=== PATIENT | male | born 1970 | race Caucasian/White ===

== ENCOUNTER → 2017-08-14 | Emergency (ER) | payer MEDICAID ==
[~2017-08-14] VITALS: Ht 177.8 cm; Wt 118.0 kg
[~2017-08-14] MED LIST: CETI-102 PO; MECL12.584 PO
[2017-08-14 17:31] VITALS: BP 152/85
== END | disposition home or self-care (01) ==
LOC: ER 16:29
DX: F41.9 Anxiety disorder, unspecified (principal); B34.9 Viral infection, unspecified; Z88.8 Allergy status to other drugs, medicaments and biological substances
CPT/HCPCS: 99284

== ENCOUNTER 2017-09-16 15:11 | Emergency (ER) | payer MEDICAID ==
[~2017-09-16] VITALS: Ht 177.8 cm; Wt 119.0 kg
[~2017-09-16 15:11] MED LIST changes: +AMOX-580 PO; +FLUT16SP2 BOTHNARES; +GUAI120015 PO
[2017-09-16] MEDS ORDERED: ondansetron 4mg rapidly disintigrating tab PO STA (16:33)
[2017-09-16] MEDS ORDERED: methylPREDNISolone sod succ 125mg/2ml vial IM STA (16:33)
[2017-09-16] MEDS ORDERED: PANT40SU2 PO (16:36)
[2017-09-16] MEDS ORDERED: ONDA4TAB9 PO (16:36)
[2017-09-16] MEDS ORDERED: MECL12.584 PO (16:36)
[2017-09-16] MEDS ORDERED: METH4TAB3 PO (16:36)
[2017-09-16 17:01] VITALS: BP 125/95
== END 2017-09-16 17:04 | disposition home or self-care (01) ==
LOC: ER 15:11
DX: K29.00 Acute gastritis without bleeding (principal); H81.10 Benign paroxysmal vertigo, unspecified ear; H83.09 Labyrinthitis, unspecified ear; Z87.891 Personal history of nicotine dependence; Z88.8 Allergy status to other drugs, medicaments and biological substances
CPT/HCPCS: 96372; 99284; J2930

== ENCOUNTER 2017-09-19 13:23 | Emergency (ER) | payer MEDICAID ==
[~2017-09-19] VITALS: Ht 177.8 cm; Wt 118.0 kg
[~2017-09-19 13:23] MED LIST changes: +METH4TAB3 PO; +ONDA4TAB9 PO; +PANT40SU2 PO
[2017-09-19] MEDS ORDERED: ondansetron/PF 4mg/2ml inj IV ONE (14:35)
[2017-09-19] MEDS ORDERED: pantoprazole 40 MG vial IV ONE (14:35)
[2017-09-19 15:36] VITALS: BP 160/96
[2017-09-19] MEDS ORDERED: PHE12.5T PO (16:16)
== END 2017-09-19 16:49 | disposition home or self-care (01) ==
LOC: ER 13:23
DX: R42 Dizziness and giddiness (principal); J32.4 Chronic pansinusitis; Z59.0 Homelessness; Z60.2 Problems related to living alone; Z79.899 Other long term (current) drug therapy
CPT/HCPCS: 70450; 70486; 93005; 96374; 96375; 99284; C9113; J2405

== ENCOUNTER 2018-01-22 10:07 | Emergency (ER) | payer MEDICAID ==
[~2018-01-22] VITALS: Ht 177.8 cm; Wt 122.0 kg
[~2018-01-22 10:07] MED LIST changes: -AMOX-580 PO; -ONDA4TAB9 PO; +PHE12.5T PO
[2018-01-22 10:13] VITALS: BP 140/103
== END 2018-01-22 11:19 | disposition home or self-care (01) ==
LOC: ER 10:07
DX: F41.0 Panic disorder [episodic paroxysmal anxiety] (principal); Z90.49 Acquired absence of other specified parts of digestive tract; Z60.2 Problems related to living alone; Z56.0 Unemployment, unspecified; Z88.8 Allergy status to other drugs, medicaments and biological substances; Z79.899 Other long term (current) drug therapy; Z59.0 Homelessness
CPT/HCPCS: 99283

== ENCOUNTER 2018-02-09 07:48 | Outpatient (CLI) | payer MEDICAID ==
[~2018-02-09 07:48] MED LIST changes: +FAMO20TA44 PO; +OMEP20CA10 PO; +ONDA4TAB9 SL; +SUCR1ORA2 PO
== END 2018-02-09 23:59 | disposition home or self-care (01) ==
LOC: LAB 07:48
PROVIDERS: ATTEND Nurse Practitioner Family
DX: K21.9 Gastro-esophageal reflux disease without esophagitis (principal); R10.13 Epigastric pain; Z87.891 Personal history of nicotine dependence
CPT/HCPCS: 74022

== ENCOUNTER 2019-03-19 02:57 | Emergency (ER) | payer MEDICAID ==
[~2019-03-19] VITALS: Ht 177.8 cm; Wt 132.0 kg
[~2019-03-19 02:57] MED LIST changes: -OMEP20CA10 PO; +OMEP20CA11 PO; -ONDA4TAB9 SL; -PHE12.5T PO; +PROM12.512 PO
[2019-03-19] MEDS ORDERED: NO HOME MEDS (03:18)
--- NOTE | 2019-03-19 03:56 | NUR ---
LABS DRAWN AND URINE SENT
[2019-03-19 03:58] LABS: BASOPHILS # (AUTO) 0.1 X10'3 (0-0.2); BASOPHILS % (AUTO) 0.9 % (0-1); EOSINOPHILS # (AUTO) 0.4 X10'3 (0-0.9); HEMATOCRIT 40.6 % (42.0-52.0); HEMOGLOBIN 13.8 g/dl (14.0-17.9); LYMPHOCYTES # (AUTO) 2.4 X10'3 (1.1-4.8); LYMPHOCYTES % (AUTO) 29.9 % (21-51); MEAN CORPUSCULAR HEMOGLOBIN 28.8 PG (27.0-31.0); MEAN CORPUSCULAR VOLUME 84.7 FL (78-98); MEAN PLATELET VOLUME 7.5 FL (7.4-10.4); MONOCYTES # (AUTO) 0.7 X10'3 (0-0.9); MONOCYTES % (AUTO) 8.4 % (2-12); NEUTROPHILS # (AUTO) 4.5 X10'3 (1.8-7.7); NEUTROPHILS % (AUTO) 55.8 % (42-75); PLATELET COUNT 226 X10'3 (140-440); RED BLOOD COUNT 4.79 X10'6 (4.70-6.10); RED CELL DISTRIBUTION WIDTH 13.8 % (11.5-14.5); WHITE BLOOD COUNT 8.1 X10'3 (4.5-11.0)
[2019-03-19 04:05] LABS: CLARITY,URINE CLEAR (Clear); COLOR,URINE YELLOW (Yellow); GLUCOSE, URINE NEGATIVE (Neg); KETONES,URINE NEGATIVE (Neg); LEUKOCYTE ESTERASE ,URINE NEGATIVE (Neg); NITRITES, URINE NEGATIVE (Neg); OCCULT BLOOD,URINE NEGATIVE (Neg); PH,URINE 5.5 (4.8-8.0); PROTEIN,URINE NEGATIVE (Neg); UROBILINOGEN,URINE 0.2 E.U/dL (0.2-1.0)
[2019-03-19 04:12] LABS: ALANINE AMINOTRANSFERASE 61 U/L (12-78); ALBUMIN 3.9 G/DL (3.4-5.0); ALBUMIN/GLOBULIN RATIO 1.1 (1.1-1.5); ALKALINE PHOSPHATASE 63 IU/L (46-116); ANION GAP 10 (8-16); ASPARTATE AMINO TRANSFERASE 30 U/L (10-37); BILIRUBIN,TOTAL 0.5 MG/DL (0.1-1.0); BLOOD UREA NITROGEN 12 MG/DL (7-18); BUN/CREATININE RATIO 10.3 (5.4-32.0); CALCIUM 9.1 MG/DL (8.5-10.1); CHLORIDE 106 MMOL/L (99-107); CREATININE 1.16 MG/DL (0.60-1.10); GLUCOSE 103 MG/DL (70-104); POTASSIUM 3.9 MMOL/L (3.5-5.1); SODIUM 141 MMOL/L (135-145); TOTAL CARBON DIOXIDE 25.3 MMOL/L (24-32); TOTAL PROTEIN 7.5 G/DL (6.4-8.2); eGFR 67 ML/MIN
[2019-03-19 04:15] LABS: UA COLLECTION TYPE VOIDED
[2019-03-19] MEDS ORDERED: AMOX500C2 PO (04:21)
[2019-03-19] MEDS ORDERED: FURO-150 PO (04:21)
[2019-03-19 04:46] VITALS: BP 115/75
== END 2019-03-19 04:35 | disposition home or self-care (01) ==
LOC: ER 02:57
DX: R60.0 Localized edema (principal); F41.9 Anxiety disorder, unspecified; Z90.49 Acquired absence of other specified parts of digestive tract; Z98.890 Other specified postprocedural states; Z59.0 Homelessness; Z79.2 Long term (current) use of antibiotics; Z88.8 Allergy status to other drugs, medicaments and biological substances
CPT/HCPCS: 36415; 80053; 81003; 83880; 85025; 99283